=== PATIENT | female | born 1980 | race Caucasian/White ===

== ENCOUNTER 2017-04-06 11:38 | Day surgery (SDC) | payer OTHER ==
[~2017-04-06] VITALS: Ht 170.2 cm; Wt 165.5 kg
[2017-04-06 12:20] VITALS: Ht 170.2 cm; Wt 165.5 kg
[2017-04-06] MEDS ORDERED: MIDAZOLAM 1 MG/ML 2 ML INJ ONE (12:20)
[2017-04-06] MEDS ORDERED: PROPOFOL 20 ML ONE (12:20)
[2017-04-06 12:33] VITALS: BP 131/77; RESP 14
[2017-04-06 13:40] VITALS: BP 109/77; RESP 12
--- NOTE | 2017-04-10 08:42 | GILP ---
DATE OF PROCEDURE: 04/06/2017 PROCEDURE PERFORMED: Esophagogastroduodenoscopy and biopsy. SURGEON: Lizandro Ruvalcaba MD PREOPERATIVE DIAGNOSES: Abdominal pain. Chronic heartburn. POSTOPERATIVE DIAGNOSES: Gastroesophageal reflux disease. Gastritis with erosions. Gastric mucosal biopsies were taken for Helicobacter pylori test. INDICATION: The patient is a 36-year-old female patient, who had upper abdominal pain and chronic heartburn not responding to therapy. The patient was scheduled for endoscopy examination for further evaluation. The procedure and possible complications were well explained to the patient. She understood and consented to the procedure. Under influence of anesthesia, the gastroscope was carefully introduced into the esophagus under direct vision, it was advanced to the stomach, into the pylorus, into the duodenal bulb and descending duodenum. FINDINGS: Esophagus: The patient had gastroesophageal reflux disease. Stomach: She had gastritis with erosions. Gastric mucosal biopsies were taken for Helicobacter pylori H pylori test. Duodenum: Normal. The patient tolerated the procedure very well and there were no complications from the procedure. At the end of procedure, she was awake with stable vital signs and she was discharged to the care of her family. IMPRESSION: Gastroesophageal reflux disease. Gastritis with erosions. Gastric mucosal biopsies were taken for Helicobacter pylori test. PLAN: Pantoprazole 40 mg p.o. q.a.m. Await Helicobacter pylori test. Dictated By: MD BETO Wyatt/gokul/reese /Document#: [id number]
== END 2017-04-06 15:04 | disposition home or self-care (01) ==
LOC: GIL 11:38
PROVIDERS: ATTEND Internal Medicine Gastroenterology
DX: K21.9 Gastro-esophageal reflux disease without esophagitis (principal); K29.60 Other gastritis without bleeding
CPT/HCPCS: 43239; 84703; 87081; J2250; Z7610